=== PATIENT | female | born 1960 | race Caucasian/White ===

== ENCOUNTER 2016-02-20 14:29 | Emergency (ER) | payer OTHER ==
[~2016-02-20] VITALS: Ht 157.5 cm; Wt 35.7 kg
[~2016-02-20 14:29] MED LIST: ALBUTEROL2.5 MG/3 M IH; ATIVAN2 MG PO; COMBIVENT INH14.7 GM IH; COUMADIN3 MG PO; CYMBALTA30 MG PO; DOCUSATE SODIU100 MG PO; FLONASE16 G1 BOTH NARES; LEVOTHYROXINE75 MCG PO; LITHIUM CARBON300 MG PO; LOPRESSOR25 MG PO; LYRICA300 MG PO; LYRICA50 MG PO; MS CONTIN100 MG PO; OXYCONTIN30 MG PO; PERCOCET 5/31 TABLET PO; PERI-COLACE TA1 EACH PO; PREDNISONE20 MG PO; PREDNISONE50 MG PO; PRINIVIL20 MG PO; PROAIR HFA8.5 GM IH; PROTONIX40 MG PO; RESTORIL30 MG PO; RISPERDAL1 MG PO; SEROQUEL300 MG PO; SIMVASTATIN40 MG PO; SPIRIVA RESPIMAT4 GM IH; SUCRALFATE1 GM PO; SYMBICORT60 INHALA1 IH; SYNTHROID25 MCG PO; SYNTHROID75 MCG PO; TRAZODONE HCL100 MG PO; TRAZODONE HCL300 MG PO; VENTOLIN HFA18 GM IH; ZESTRIL,PRINIV2.5 MG PO; ZITHROMAX Z-PA250 MG PO; ZOFRAN8 MG PO; ZOLOFT50 MG PO
[2016-02-20 15:42] LABS: HEMATOCRIT 33.7 % (36.0-46.0); MCH 22.9 PG (29.0-34.0); MCHC 32.3 G/DL (30.0-36.0); MCV 70.8 FL (83-99); MEAN PLAT.VOLUME 10.6 uM^3 (9.5-12.4); PLATELET COUNT 294 K/uL (156-360); RBC DIS.WIDTH-CV 19.5 % (11.8-14.6); RBC DIS.WIDTH-SD 48.7 % (39-53); RED BLOOD COUNT 4.76 M/uL (3.80-5.20)
[2016-02-20 15:43] LABS: WHITE BLOOD COUNT 5.1 K/uL (4.1-10.2)
[2016-02-20 15:47] LABS: CHLORIDE 107 mEq/L (99-109); SODIUM 137 mEq/L (136-147)
[2016-02-20 15:50] LABS: ANION GAP 14 MEQ/L (2-14)
[2016-02-20 15:52] LABS: GFR ESTIMATE (CALCULATED) > 59 mL/min/; SERUM ETHYL ALCOHOL 21 mg/dL
[2016-02-20 15:53] LABS: UREA NITROGEN (BUN) 12 mg/dL (9-23)
[2016-02-20 15:56] LABS: GLUCOSE 75 mg/dL (70-99)
[2016-02-20 18:01] LABS: ADD MIUA? YES; BILIRUBIN NEGATIVE; BLOOD NEGATIVE; COLOR YELLOW ((YELLOW)); GLUCOSE (STRIP) NEGATIVE; KETONES 15; LEUKOCYTES NEGATIVE; NITRITE NEGATIVE; PH, URINE 5.5 (5-8); PROTEIN (STRIP) 30; SPECIFIC GRAVITY 1.027 (1.000-1.030); UROBILINOGEN 0.2 MG/DL (0.2-1.0)
[2016-02-20 18:14] LABS: ADD MEDTOX COMMENT Y; AMPHETAMINE NEGATIVE (500 ng/mL); BARBITURATES NEGATIVE (200 ng/mL); BENZODIAZEPINES PRESUMPTIVE POSITIVE (150 ng/mL); COCAINE PRESUMPTIVE POSITIVE (150 ng/mL); INTERNAL CONTROLS VALID? YES; METHADONE NEGATIVE (200 ng/mL); METHAMPHETAMINE PRESUMPTIVE POSITIVE (500 ng/mL); OPIATES (MORPHINE) PRESUMPTIVE POSITIVE (100 ng/mL); OXYCODONE NEGATIVE (100 ng/mL); PHENCYCLIDINE NEGATIVE (25 ng/mL); PROPOXYPHENE NEGATIVE (300 ng/mL); THC CANNABINOIDS NEGATIVE (50 ng/mL); TRICYCLIC ANTIDEPRESSANTS NEGATIVE (300 ng/mL)
[2016-02-20 18:36] LABS: AMORPHOUS URATES CRYSTALS 3+; BACTERIA RARE; CASTS NONE SEEN /LPF; CRYSTALS PRESENT; EPITHELIAL CELLS RARE; MUCUS TRACE; RED BLOOD CELLS RARE /HPF (0-5); UCUL ADDED? NO; WHITE BLOOD CELLS RARE /HPF (0-5)
[2016-02-20 18:45] LABS: BENZODIAZEPINES QUANT VALUE 0 NG/ML
[2016-02-20 18:49] LABS: BENZODIAZEPINES, URINE SCREEN Negative (200 ng/mL)
[2016-02-20] MEDS ORDERED: MOBIC15 MG PO (19:02)
[2016-02-20 19:58] VITALS: BP 162/98
[2016-02-21] MEDS ORDERED: UNABLE TO OBTAIN (16:46)
== END 2016-02-20 21:38 | disposition home or self-care (01) ==
LOC: EME 14:29
PROVIDERS: Emergency Medicine
DX: R10.30 Lower abdominal pain, unspecified (principal); T40.5X4A Poisoning by cocaine, undetermined, initial encounter; D64.9 Anemia, unspecified; E83.51 Hypocalcemia; J44.9 Chronic obstructive pulmonary disease, unspecified; E78.5 Hyperlipidemia, unspecified; I10 Essential (primary) hypertension; Z86.711 Personal history of pulmonary embolism; B19.20 Unspecified viral hepatitis C without hepatic coma; F17.200 Nicotine dependence, unspecified, uncomplicated
CPT/HCPCS: 80048; 81003; 84999; 85027; 99281; 99284; G0480; J1885

== ENCOUNTER 2016-02-20 23:26 | Emergency (ER) | payer OTHER ==
[~2016-02-20] VITALS: Ht 157.5 cm; Wt 60.5 kg
[~2016-02-20 23:26] MED LIST changes: +MOBIC15 MG PO
[2016-02-21 00:52] LABS: CHLORIDE 103 mEq/L (99-109); POTASSIUM 3.6 mEq/L (3.7-5.4); SODIUM 135 mEq/L (136-147)
[2016-02-21 00:54] LABS: GLUCOSE 81 mg/dL (70-99)
[2016-02-21 00:55] LABS: ANION GAP 11 MEQ/L (2-14)
[2016-02-21 00:57] LABS: GFR ESTIMATE (CALCULATED) > 59 mL/min/
[2016-02-21 00:58] LABS: HEMATOCRIT 32.1 % (36.0-46.0); MCH 22.6 PG (29.0-34.0); MCHC 32.4 G/DL (30.0-36.0); MCV 69.8 FL (83-99); PLATELET COUNT 300 K/uL (156-360); RBC DIS.WIDTH-CV 18.9 % (11.8-14.6); RBC DIS.WIDTH-SD 46.9 % (39-53); UREA NITROGEN (BUN) 16 mg/dL (9-23); WHITE BLOOD COUNT 4.9 K/uL (4.1-10.2)
[2016-02-21 01:50] VITALS: BP 171/97
[2016-02-21 02:16] LABS: TROP-I INTERPRETATION NEGATIVE; TROPONIN-I < 0.01 ng/mL (0.0-0.30)
[2016-02-21] MEDS ORDERED: UNABLE TO OBTAIN (16:46)
== END 2016-02-21 01:56 | disposition home or self-care (01) ==
LOC: EME 23:26
PROVIDERS: Emergency Medicine
DX: F19.10 Other psychoactive substance abuse, uncomplicated (principal); Z59.0 Homelessness; R07.9 Chest pain, unspecified; M54.9 Dorsalgia, unspecified; I10 Essential (primary) hypertension; E78.5 Hyperlipidemia, unspecified; J44.9 Chronic obstructive pulmonary disease, unspecified; Z79.01 Long term (current) use of anticoagulants; F17.200 Nicotine dependence, unspecified, uncomplicated
CPT/HCPCS: 71020; 80048; 84484; 85027; 93005; 99281; 99283

== ENCOUNTER 2016-02-21 09:13 | Emergency (ER) | payer OTHER ==
[~2016-02-21] VITALS: Ht 157.5 cm; Wt 61.5 kg
[2016-02-21 10:21] LABS: ADD MIUA? NO; BILIRUBIN NEGATIVE; BLOOD NEGATIVE; COLOR YELLOW ((YELLOW)); GLUCOSE (STRIP) NEGATIVE; KETONES 40; LEUKOCYTES NEGATIVE; NITRITE NEGATIVE; PROTEIN (STRIP) 30; SPECIFIC GRAVITY 1.024 (1.000-1.030); UROBILINOGEN 0.2 MG/DL (0.2-1.0)
[2016-02-21 10:29] LABS: HEMATOCRIT 32.5 % (36.0-46.0); MCH 23.2 PG (29.0-34.0); MCHC 33.5 G/DL (30.0-36.0); MCV 69.1 FL (83-99); MEAN PLAT.VOLUME 9.7 uM^3 (9.5-12.4); PLATELET COUNT 301 K/uL (156-360); RBC DIS.WIDTH-CV 18.8 % (11.8-14.6); RBC DIS.WIDTH-SD 46.4 % (39-53); WHITE BLOOD COUNT 5.6 K/uL (4.1-10.2)
[2016-02-21 10:31] LABS: EOSINOPHIL (%) 0.5 % (0-5); IMMATURE GRANULOCYTE (%) 0.4 % (0.0-0.7); IMMATURE GRANULOCYTE COUNT 0.2 K/uL; LYMPHOCYTE COUNT 0.8 K/uL (1.0-2.8); MONOCYTE (%) 12.2 % (3-12); MONOCYTE COUNT 0.7 K/uL (0-0.8); NEUTROPHIL (%) 72.2 % (45-76); NEUTROPHIL COUNT 4.1 K/uL (1.8-6.4)
[2016-02-21 10:37] LABS: CHLORIDE 100 mEq/L (99-109); POTASSIUM 3.2 mEq/L (3.7-5.4); SODIUM 133 mEq/L (136-147)
[2016-02-21 10:40] LABS: GLUCOSE 113 mg/dL (70-99)
[2016-02-21 10:41] LABS: ANION GAP 13 MEQ/L (2-14)
[2016-02-21 10:42] LABS: TOTAL BILIRUBIN 0.7 mg/dL (0.0-1.0)
[2016-02-21 10:43] LABS: ALKALINE PHOSPHATASE 99 IU/L (3-129); GFR ESTIMATE (CALCULATED) > 59 mL/min/
[2016-02-21 10:44] LABS: UREA NITROGEN (BUN) 14 mg/dL (9-23)
[2016-02-21 10:46] LABS: LIPASE 13 U/L (1.0-51.0)
[2016-02-21 16:44] VITALS: BP 158/98
[2016-02-21] MEDS ORDERED: UNABLE TO OBTAIN (16:46)
== END 2016-02-21 16:52 | disposition home or self-care (01) ==
LOC: EME → EDBD 09:13 → EME 16:52
PROVIDERS: Physician Assistant Medical
DX: J44.1 Chronic obstructive pulmonary disease with (acute) exacerbation (principal); F17.200 Nicotine dependence, unspecified, uncomplicated; E78.5 Hyperlipidemia, unspecified; I10 Essential (primary) hypertension; Z86.711 Personal history of pulmonary embolism; Z79.01 Long term (current) use of anticoagulants
CPT/HCPCS: 71020; 80053; 81003; 83690; 85025; 94640; 94640 76; 99281; 99285

== ENCOUNTER 2016-02-21 18:28 | Emergency (ER) | payer OTHER ==
[~2016-02-21] VITALS: Ht 157.5 cm; Wt 60.0 kg
[~2016-02-21 18:28] MED LIST changes: +UNABLE TO OBTAIN
[2016-02-21 19:49] LABS: HEMATOCRIT 33.9 % (36.0-46.0); MCH 23.3 PG (29.0-34.0); MCHC 33.9 G/DL (30.0-36.0); MCV 68.8 FL (83-99); MEAN PLAT.VOLUME 9.8 uM^3 (9.5-12.4); PLATELET COUNT 310 K/uL (156-360); RBC DIS.WIDTH-CV 19.2 % (11.8-14.6); RBC DIS.WIDTH-SD 46.5 % (39-53); RED BLOOD COUNT 4.93 M/uL (3.80-5.20)
[2016-02-21 20:02] LABS: CHLORIDE 101 mEq/L (99-109); POTASSIUM 3.3 mEq/L (3.7-5.4); SODIUM 134 mEq/L (136-147)
[2016-02-21 20:04] LABS: GLUCOSE 118 mg/dL (70-99)
[2016-02-21 20:06] LABS: ANION GAP 10 MEQ/L (2-14); TOTAL BILIRUBIN 0.8 mg/dL (0.0-1.0)
[2016-02-21 20:08] LABS: ALKALINE PHOSPHATASE 111 IU/L (3-129); GFR ESTIMATE (CALCULATED) > 59 mL/min/
[2016-02-21 20:09] LABS: UREA NITROGEN (BUN) 12 mg/dL (9-23)
[2016-02-21 21:56] VITALS: BP 150/87
== END 2016-02-21 21:57 | disposition home or self-care (01) ==
LOC: EXP 18:28 → EME 18:28 → EXP 21:57
DX: R10.84 Generalized abdominal pain (principal); G89.29 Other chronic pain; J44.9 Chronic obstructive pulmonary disease, unspecified; E78.5 Hyperlipidemia, unspecified; I10 Essential (primary) hypertension; Z86.711 Personal history of pulmonary embolism; B19.20 Unspecified viral hepatitis C without hepatic coma; Z79.01 Long term (current) use of anticoagulants; F17.200 Nicotine dependence, unspecified, uncomplicated
CPT/HCPCS: 80053; 81003; 85027; 99281; 99283

== ENCOUNTER 2016-02-22 06:02 | Emergency (ER) | payer OTHER ==
[~2016-02-22] VITALS: Ht 157.5 cm; Wt 60.0 kg
[2016-02-22 08:44] LABS: HEMATOCRIT 35.6 % (36.0-46.0); MCH 23.3 PG (29.0-34.0); MCHC 33.7 G/DL (30.0-36.0); MCV 69.1 FL (83-99); MEAN PLAT.VOLUME 10.1 uM^3 (9.5-12.4); PLATELET COUNT 319 K/uL (156-360); RBC DIS.WIDTH-CV 19.4 % (11.8-14.6); RBC DIS.WIDTH-SD 47.7 % (39-53); RED BLOOD COUNT 5.15 M/uL (3.80-5.20); WHITE BLOOD COUNT 6.2 K/uL (4.1-10.2)
[2016-02-22 08:56] LABS: CHLORIDE 101 mEq/L (99-109); POTASSIUM 3.4 mEq/L (3.7-5.4); SODIUM 135 mEq/L (136-147)
[2016-02-22 08:58] LABS: GLUCOSE 112 mg/dL (70-99)
[2016-02-22 08:59] LABS: ANION GAP 12 MEQ/L (2-14)
[2016-02-22 09:00] LABS: TOTAL BILIRUBIN 0.7 mg/dL (0.0-1.0)
[2016-02-22 09:02] LABS: GFR ESTIMATE (CALCULATED) > 59 mL/min/
[2016-02-22 09:03] LABS: UREA NITROGEN (BUN) 10 mg/dL (9-23)
[2016-02-22 09:23] LABS: ALKALINE PHOSPHATASE 102 IU/L (3-129)
[2016-02-22 12:56] VITALS: BP 155/116
[2016-02-23] MEDS ORDERED: SEROQUEL300 MG PO (17:25)
[2016-02-23] MEDS ORDERED: LISINOPRIL20 MG PO (17:26)
[2016-02-23] MEDS ORDERED: TRAZODONE HCL100 MG PO (17:26)
[2016-02-23] MEDS ORDERED: RESTORIL30 MG PO (17:26)
[2016-02-23] MEDS ORDERED: SIMVASTATIN40 MG PO (17:27)
[2016-02-23] MEDS ORDERED: MORPHINE SULFA100 M2 PO (17:28)
[2016-02-23] MEDS ORDERED: SYMBICORT60 INHALA1 IH (17:28)
[2016-02-23] MEDS ORDERED: ATIVAN2 MG PO (17:28)
[2016-02-23] MEDS ORDERED: COUMADIN3 MG PO (17:28)
[2016-02-23] MEDS ORDERED: PROTONIX40 MG PO (17:28)
[2016-02-23] MEDS ORDERED: SPIRIVA RESPIMAT4 GM IH (17:29)
[2016-02-23] MEDS ORDERED: LYRICA300 MG PO (17:29)
[2016-02-23] MEDS ORDERED: COMBIVENT RESPIM4 GM IH (17:30)
== END 2016-02-22 12:50 | disposition home or self-care (01) ==
LOC: EME 06:02
PROVIDERS: Emergency Medicine
DX: B34.9 Viral infection, unspecified (principal); E78.5 Hyperlipidemia, unspecified; I10 Essential (primary) hypertension; J44.9 Chronic obstructive pulmonary disease, unspecified; Z88.0 Allergy status to penicillin; Z88.1 Allergy status to other antibiotic agents; Z88.2 Allergy status to sulfonamides
CPT/HCPCS: 80053; 85027; 99281; 99285; J1885; J2405; J2765; J7030

== ENCOUNTER 2016-02-23 12:39 | Inpatient (IN) | payer OTHER ==
[~2016-02-23] VITALS: Ht 157.5 cm; Wt 62.8 kg
[2016-02-23 13:59] LABS: HEMATOCRIT 36.3 % (36.0-46.0); MCH 23.4 PG (29.0-34.0); MCHC 33.6 G/DL (30.0-36.0); MCV 69.5 FL (83-99); MEAN PLAT.VOLUME 9.8 uM^3 (9.5-12.4); PLATELET COUNT 376 K/uL (156-360); RBC DIS.WIDTH-CV 19.4 % (11.8-14.6); RBC DIS.WIDTH-SD 48.1 % (39-53); RED BLOOD COUNT 5.22 M/uL (3.80-5.20); WHITE BLOOD COUNT 7.2 K/uL (4.1-10.2)
[2016-02-23 14:06] LABS: EOSINOPHIL (%) 1.2 % (0-5); EOSINOPHIL COUNT 0.1 K/uL (0-0.3); IMMATURE GRANULOCYTE (%) 0.1 % (0.0-0.7); IMMATURE GRANULOCYTE COUNT 0.1 K/uL; LYMPHOCYTE COUNT 1.8 K/uL (1.0-2.8); MONOCYTE (%) 10.2 % (3-12); MONOCYTE COUNT 0.7 K/uL (0-0.8); NEUTROPHIL COUNT 4.5 K/uL (1.8-6.4)
[2016-02-23 14:09] LABS: CHLORIDE 105 mEq/L (99-109); POTASSIUM 3.3 mEq/L (3.7-5.4); SODIUM 139 mEq/L (136-147)
[2016-02-23 14:11] LABS: GLUCOSE 91 mg/dL (70-99)
[2016-02-23 14:12] LABS: ANION GAP 13 MEQ/L (2-14)
[2016-02-23 14:14] LABS: SERUM ETHYL ALCOHOL 55 mg/dL
[2016-02-23 14:15] LABS: GFR ESTIMATE (CALCULATED) > 59 mL/min/
[2016-02-23 14:17] LABS: UREA NITROGEN (BUN) 8 mg/dL (9-23)
[2016-02-23 14:18] LABS: SALICYLATE < 5.0 MG/DL (15-30)
[2016-02-23 14:22] LABS: TROP-I INTERPRETATION NEGATIVE; TROPONIN-I < 0.01 ng/mL (0.0-0.30)
[2016-02-23 15:23] LABS: AMPHETAMINE NEGATIVE (500 ng/mL); BARBITURATES NEGATIVE (200 ng/mL); BENZODIAZEPINES NEGATIVE (150 ng/mL); COCAINE NEGATIVE (150 ng/mL); INTERNAL CONTROLS VALID? YES; METHADONE NEGATIVE (200 ng/mL); METHAMPHETAMINE NEGATIVE (500 ng/mL); OPIATES (MORPHINE) NEGATIVE (100 ng/mL); OXYCODONE NEGATIVE (100 ng/mL); PHENCYCLIDINE NEGATIVE (25 ng/mL); PROPOXYPHENE NEGATIVE (300 ng/mL); THC CANNABINOIDS NEGATIVE (50 ng/mL); TRICYCLIC ANTIDEPRESSANTS NEGATIVE (300 ng/mL)
[2016-02-23] MEDS ORDERED: SEROQUEL300 MG PO (17:25)
[2016-02-23] MEDS ORDERED: RESTORIL30 MG PO (17:26)
[2016-02-23] MEDS ORDERED: TRAZODONE HCL100 MG PO (17:26)
[2016-02-23] MEDS ORDERED: LISINOPRIL20 MG PO (17:26)
[2016-02-23] MEDS ORDERED: SIMVASTATIN40 MG PO (17:27)
[2016-02-23] MEDS ORDERED: MORPHINE SULFA100 M2 PO (17:28)
[2016-02-23] MEDS ORDERED: COUMADIN3 MG PO (17:28)
[2016-02-23] MEDS ORDERED: SYMBICORT60 INHALA1 IH (17:28)
[2016-02-23] MEDS ORDERED: ATIVAN2 MG PO (17:28)
[2016-02-23] MEDS ORDERED: PROTONIX40 MG PO (17:28)
[2016-02-23] MEDS ORDERED: LYRICA300 MG PO (17:29)
[2016-02-23] MEDS ORDERED: SPIRIVA RESPIMAT4 GM IH (17:29)
[2016-02-23] MEDS ORDERED: COMBIVENT RESPIM4 GM IH (17:30)
[2016-02-23 18:08] VITALS: BP 181/108
[2016-02-23 18:11] VITALS: BP 181/108
[2016-02-23 19:23] VITALS: BP 175/105
[2016-02-23 22:29] LABS: INTER. NORMALIZED RATIO 1.1; PROTHROMBIN TIME 11.1 (9.2-11.2)
[2016-02-24 07:42] VITALS: BP 130/75
[2016-02-24 09:35] LABS: INTER. NORMALIZED RATIO 1.1; PROTHROMBIN TIME 11.1 (9.2-11.2)
[2016-02-24 09:56] VITALS: BP 128/77
[2016-02-24 15:29] VITALS: BP 161/88
[2016-02-24 23:47] VITALS: BP 151/96
[2016-02-25 04:09] VITALS: BP 147/93
[2016-02-25 07:55] VITALS: BP 145/92
[2016-02-25 08:29] LABS: INTER. NORMALIZED RATIO 1.3; PROTHROMBIN TIME 13.5 (9.2-11.2)
[2016-02-25 15:30] VITALS: BP 161/89
[2016-02-26 07:50] VITALS: BP 142/91
[2016-02-26 08:16] LABS: INTER. NORMALIZED RATIO 1.3; PROTHROMBIN TIME 13.2 (9.2-11.2)
[2016-02-26 15:29] VITALS: BP 144/75
[2016-02-27 07:31] LABS: INTER. NORMALIZED RATIO 1.5
[2016-02-27 07:58] VITALS: BP 160/95
== END 2016-02-27 10:24 | disposition home or self-care (01) | DRG 885 ==
LOC: EME 12:39 → EDOF 17:01 → 1WEST 17:01
PROVIDERS: Emergency Medicine; Psychiatry & Neurology Psychiatry
DX: F33.9 Major depressive disorder, recurrent, unspecified (principal); B18.1 Chronic viral hepatitis B without delta-agent; R45.851 Suicidal ideations; F10.220 Alcohol dependence with intoxication, uncomplicated; Y90.2 Blood alcohol level of 40-59 mg/100 ml; I10 Essential (primary) hypertension; E78.5 Hyperlipidemia, unspecified; E03.9 Hypothyroidism, unspecified; Z86.711 Personal history of pulmonary embolism; B18.2 Chronic viral hepatitis C; Z59.0 Homelessness; M54.9 Dorsalgia, unspecified
CPT/HCPCS: 71020; 80048; 80053; 81003; 84484; 84999; 85025; 85027; 85610; 90839; 93005; 94640; 94640 76; 97150 GO; 97165 GO; 99202; 99281; 99283; 99284; 99285; G0480; J1885; J2405; J2765; J7030; Q0169